=== PATIENT | female | born 1965 | race Caucasian/White ===

== ENCOUNTER 2018-12-14 12:59 | Outpatient (CLI) | payer BC | END 2018-12-14 13:00 | disposition home or self-care (01) | LOC: DTY/OP 12:59 | PROVIDERS: ATTEND Surgery | DX: E66.01 Morbid (severe) obesity due to excess calories (principal) | CPT/HCPCS: 97802 ==

== ENCOUNTER 2019-01-10 00:15 | Outpatient (CLI) | payer BC ==
--- NOTE | 2019-01-10 17:12 | RAD ---
F2 views chest: 01/10/2019 COMPARISON: None HISTORY: Preoperative patient FINDINGS: Lungs are clear. Heart and mediastinal contours are unremarkable. Right lateral osteophyte formation noted within the thoracic spine. IMPRESSION: No acute findings.
[2019-01-10 17:31] LABS: #Basophils 0.1 thou/uL (0.0-0.2); #Eosinphils 0.2 thou/uL (0.0-0.7); #Lymphocytes 4.3 thou/uL (1.20-3.40); #Monocytes 1.1 thou/uL (0.11-0.59); #Neutrophils 10.5 thou/uL (1.40-6.50); %Basophils 0.7 % (0.0-1.0); %Eosinophils 1.4 % (0.0-10.0); %Lymphocytes 26.5 % (21.0-51.0); %Monocytes 6.8 % (0.0-10.0); %Neutrophils 64.6 % (42.0-75.0); Hemoglobin 13.7 g/dL (12.0-16.0); Mean Corpuscular HGB CONC 33.2 g/dL (32.0-36.0); Mean Corpuscular Hemoglobin 29.4 pg (27.0-31.0); Mean Corpuscular Volume 88.6 fL (78.0-98.0); Mean Platelet Volume 9.2 fL (7.4-10.4); Platelet Count 352 thou/uL (130-400); RBC Distribution Width 12.8 % (11.5-14.5); Red Blood Cell (RBC) Count 4.67 mill/uL (4.20-5.40); White Blood Cell (WBC) Count 16.3 thou/uL (4.8-10.8)
[2019-01-10 17:47] LABS: ALT (SGPT) 31 U/L (8-55); AST (SGOT) 31 U/L (5-34); Albumin 4.1 g/dL (3.5-5.0); Alkaline Phosphatase 80 U/L (40-150); Anion Gap 12 mmol/L (10-20); BUN (Urea Nitrogen) 28 mg/dL (9.8-20.1); Bilirubin, Direct 0.3 mg/dL (0.1-0.3); Bilirubin, Total 0.7 mg/dL (0.2-1.2); Calc. Creatinine Clearance 0 mL/min (70-130); Calcium 9.9 mg/dL (7.8-10.44); Carbon Dioxide 30 mmol/L (22-29); Chloride 96 mmol/L (98-107); Estimated GFR-MDRD 76; Glucose 120 mg/dL (70-105); Hemoglobin A1c 7.9 % (4.0-6.0); Potassium 3.6 mmol/L (3.5-5.1); Protein, Total 7.1 g/dL (6.0-8.3); Sodium 134 mmol/L (136-145)
== END 2019-01-10 00:16 | disposition home or self-care (01) ==
LOC: LABBT 00:15
PROVIDERS: ATTEND Surgery
DX: Z01.818 Encounter for other preprocedural examination (principal); E66.01 Morbid (severe) obesity due to excess calories
CPT/HCPCS: 71046; 80053; 80076; 83036; 85025

== ENCOUNTER 2019-01-10 15:30 | Inpatient (IN) | payer BC ==
[2019-01-10 16:20] VITALS: BMI 42.9
[2019-01-16] MEDS ORDERED: Fentanyl 100 MCG/2 ML VIAL ONE ×2 (06:24→09:23)
[2019-01-16] MEDS ORDERED: Bupivacaine/Epinephrine 0.25% 30 ML VIAL ONE (06:39)
[2019-01-16] MEDS ORDERED: Heparin 5,000 UNITS/ML VIAL ONE (06:51)
[2019-01-16] MEDS ORDERED: SUGAMMADEX SODIUM 200 MG/2 ML VIAL ONE (08:36)
[2019-01-16] MEDS ORDERED: Hydrocodone-Acetamin 15 ML UDCUP PO PRN (08:44)
[2019-01-16] MEDS ORDERED: Dextrose 5% in Water 1,000 ML IV PRN (08:44)
[2019-01-16] MEDS ORDERED: Promethazine HCl 25 MG/ML VIAL IM PRN ×3 (08:44→09:11)
[2019-01-16] MEDS ORDERED: hydrALAZINE 20 MG/ML VIAL SLOW IVP PRN (08:44)
[2019-01-16] MEDS ORDERED: Ondansetron PF 4 MG/2 ML Vial IVP PRN (08:44)
[2019-01-16] MEDS ORDERED: diphenhydrAMINE 50 MG/ML VIAL IVP PRN ×2 (08:44→09:11)
[2019-01-16] MEDS ORDERED: Dextrose 50% Abboject 50 ML SYRINGE SLOW IVP PRN (08:44)
[2019-01-16] MEDS ORDERED: Meperidine HCl/PF 25 MG/ML VIAL SLOW IVP PRN (08:56)
[2019-01-16] MEDS ORDERED: Promethazine HCl 25 MG/ML VIAL ONE ×2 (08:56→10:37)
[2019-01-16] MEDS ORDERED: Promethazine HCl 25 MG/ML VIAL SLOW IVP PRN (08:56)
[2019-01-16] MEDS ORDERED: Ketorolac Tromethamine 30 MG/ML VIAL IVP PRN ×2 (08:56→09:11)
[2019-01-16] MEDS ORDERED: HYDROmorphone 2 MG/ML VIAL SLOW IVP PRN (08:56)
[2019-01-16] MEDS ORDERED: Morphine Sulfate 2 MG/ML SYRINGE SLOW IVP PRN (08:56)
[2019-01-16] MEDS ORDERED: Ondansetron HCl/PF 4 MG/2 ML Vial IVP PRN (08:56)
[2019-01-16] MEDS ORDERED: fentaNYL Citrate/PF 2,000 MCG in Sodium Chloride 0.9% 60 ML IV PRN (09:11)
[2019-01-16] MEDS ORDERED: Zolpidem Tartrate 5 MG TAB PO PRN (09:11)
[2019-01-16] MEDS ORDERED: Naloxone HCl 0.4 mg/ml Vial IV PRN (09:11)
[2019-01-16] MEDS ORDERED: diphenhydrAMINE 50 MG/ML VIAL IM PRN (09:11)
[2019-01-16] MEDS ORDERED: diphenhydrAMINE 25 MG CAP PO PRN (09:11)
[2019-01-16] MEDS ORDERED: Communication Order-Pharmacy FS SCH (09:15)
[2019-01-16] MEDS ORDERED: hydrALAZINE 20 MG/ML VIAL ONE (09:16)
[2019-01-16] MEDS ORDERED: Ondansetron PF 4 MG/2 ML Vial ONE (09:36)
[2019-01-16] MEDS: Pantoprazole 40 MG VIAL IVP SCH (11:08)
[2019-01-16] MEDS ORDERED: Ketorolac Tromethamine 30 MG/ML VIAL IVP SCH (12:00)
[2019-01-16] MEDS: 1/2 NS w/KCL 20 mEq 1,000 ML IV SCH ×3 (12:21→21:10)
--- NOTE | 2019-01-16 12:41 | OP ---
DATE OF PROCEDURE: 01/16/2019 PREOPERATIVE DIAGNOSIS: Morbid obesity. PROCEDURES PERFORMED: Laparoscopic sleeve gastrectomy and esophagogastroscopy. INDICATIONS: This is a 53-year-old female, morbidly obese, who has multiple comorbidities, who has attempted multiple weight loss programs without success. FINDINGS: A 38-Green[place]ic bougie used. DESCRIPTION OF PROCEDURE: After informed consent was obtained, the patient was taken to the operating room and given general endotracheal anesthesia. She was placed in the supine position. Her abdomen was prepped and draped in the usual fashion. Local anesthesia was infiltrated subcutaneously and deep. A 12-mm incision was performed approximately 8 inches above the xiphoid slightly to the left. Veress needle was inserted. Drop test performed. Pneumoperitoneum was created to a volume of 2 L of carbon dioxide. Utilizing a bladeless 12 mm trocar and 0-degree laparoscope, direct visual entry in the abdominal cavity was performed. Pneumoperitoneum was created to a pressure of 15 mmHg. The patient was placed in steep reverse Trendelenburg position. Que liver retractor was inserted. Left lobe of the liver retracted superiorly. Pylorus was identified, and 12-mm port was placed on the right beneath it and two 12s placed on left subcostal. The omentum was taken off the greater curvature 5 cm from the pylorus utilizing the LigaSure. Short gastrics divided with LigaSure. Left crura defined with the LigaSure. A 38-Green[place]ic bougie inserted, directed into the antrum. The linear 60 mm green load stapler was used to divide the antrum to the bougie, gold load along the bougie, and a series of blues through the angle of His. Intraoperative endoscopy was performed. The video endoscope was inserted under direct vision, advanced into the sleeve. The staple line was inspected. There was no bleeding. Staple line was then tested by inflating the new stomach with pressurized air under water. There was no air leak. Stomach was decompressed. Scope was removed. The remnants of the stomach removed from the abdomen through the left lateral port site. The fascia was closed with 0 Vicryl suture and the GraNee needle. Trocars and retractors were removed. Skin was closed with interrupted 4-0 Rapide. Dermabond applied. The patient tolerated the procedure well, transferred to Recovery in good condition. Sponge and needle count verified correct x2. Job ID: [id number]
[2019-01-16] MEDS ORDERED: diphenhydrAMINE 50 MG/ML VIAL ONE (14:46)
[2019-01-16] MEDS ORDERED: PROPOFOL 200 MG/20 ML VIAL ONE (14:46)
[2019-01-16] MEDS ORDERED: PHENYLEPHRINE-NS 100 MCG/ML 10 ML SYRINGE ONE (14:46)
[2019-01-16] MEDS ORDERED: Dexamethasone 20 MG/5 ML VIAL ONE (14:46)
[2019-01-16] MEDS ORDERED: Lidocaine 1% PF 5 ML VIAL ONE (14:46)
[2019-01-16] MEDS ORDERED: Rocuronium Bromide 10 MG/ML (10ML VIAL) ONE (14:46)
[2019-01-16] MEDS: CEFAZOLIN 2 GM in Premix Bag 1 BAG IVPB SCH ×2 (14:55→23:57)
[2019-01-16] MEDS: Insulin Regular 300 UNITS/3 ML VIAL SC PRN ×2 (18:15→23:58)
[2019-01-16] MEDS ORDERED: Enoxaparin Sodium 40 MG/0.4 ML SYRINGE SC SCH (21:00)
[2019-01-17] MEDS: Ondansetron PF 4 MG/2 ML Vial IVP PRN ×2 (03:48→09:29)
[2019-01-17] MEDS: Insulin Regular 300 UNITS/3 ML VIAL SC PRN ×2 (06:00→11:41)
[2019-01-17 06:02] LABS: Anion Gap 15 mmol/L (10-20); BUN (Urea Nitrogen) 22 mg/dL (9.8-20.1); Calc. Creatinine Clearance 141 mL/min (70-130); Calcium 8.6 mg/dL (7.8-10.44); Carbon Dioxide 25 mmol/L (22-29); Chloride 98 mmol/L (98-107); Estimated GFR-MDRD 67; Glucose 218 mg/dL (70-105); Potassium 4.4 mmol/L (3.5-5.1); Sodium 134 mmol/L (136-145)
[2019-01-17 06:03] LABS: Band 7 % (5-11); Hemoglobin 10.8 g/dL (12.0-16.0); Lymphocytes 8 % (21-51); MDiff Complete? YES; Mean Corpuscular HGB CONC 33.1 g/dL (32.0-36.0); Mean Corpuscular Hemoglobin 29.5 pg (27.0-31.0); Mean Corpuscular Volume 89.1 fL (78.0-98.0); Mean Platelet Volume 9.7 fL (7.4-10.4); Metamyelocyte 1 % (0-0); Monocytes 7 % (0-10); Neutrophil 77 % (42-75); Platelet Count 409 thou/uL (130-400); Platelet Morphology Comment Appears Increased; RBC Distribution Width 13.2 % (11.5-14.5); Red Blood Cell (RBC) Count 3.67 mill/uL (4.20-5.40); White Blood Cell (WBC) Count 24.1 thou/uL (4.8-10.8)
[2019-01-17] MEDS: 1/2 NS w/KCL 20 mEq 1,000 ML IV SCH (06:03)
--- NOTE | 2019-01-17 08:35 | RAD ---
XR UGI Single Contrast No Air History: [Recent gastric sleeve. Postoperative. Evaluate for leak.] Comparison: None Findings: Patient was given 15 mL of Gastrografin water-soluble contrast. Contrast transited through the esophagus quickly. There is transit through the postoperative stomach into the proximal small bow el. No leak. Impression: No leak. Normal examination.
[2019-01-17] MEDS: Pantoprazole 40 MG VIAL IVP SCH (09:29)
[2019-01-17] MEDS ORDERED: Hydrocodone-Acetamin 15 ML UDCUP PO PRN (09:43)
--- NOTE | 2019-01-17 09:58 | PRG ---
DATE OF SERVICE: 01/17/2019 SUBJECTIVE: The patient's been having a lot of nausea. She has tried multiple medications, Zofran seems to be the best. No vomiting. OBJECTIVE: VITAL SIGNS: Her temperature is 97.9, pulse is 110, blood pressure 136/80. GENERAL: She looks okay. LUNGS: Clear. ABDOMEN: Soft, nondistended. The incisions are healing well. DIAGNOSTIC DATA: She had an upper GI series that was normal. No evidence of leak. No evidence of obstruction. LABORATORY DATA: White count is 24, H and H 10 and 32, platelet count 409. Electrolytes show elevated glucose at 218. ASSESSMENT: Postop nausea. PLAN: We will try different medications to get this under control. When she is able to drink enough fluids and feeling better, not tachycardic, we will consider discharge. Job ID: [id number]
[2019-01-17 15:53] VITALS: BP 111/73; TEMP 98.5
[2019-01-17] MEDS ORDERED: Sodium Chloride 0.9% 1,000 ML IV SCH (17:00)
--- NOTE | 2019-01-18 04:51 | DIS ---
DATE OF ADMISSION: 01/16/2019 DATE OF DISCHARGE: 01/17/2019 DISCHARGE DIAGNOSIS: Morbid obesity. PROCEDURES DURING ADMISSION: Laparoscopic sleeve gastrectomy, intraoperative esophagogastroscopy, and postoperative Gastrografin swallow. HOSPITAL COURSE: Patient was admitted, taken to the operating room where she underwent sleeve gastrectomy. Postoperatively, she had a lot of nausea that was eventually controlled. Her swallow was fine. She was started on liquids. She was a little bit tachycardic, but that is resolving. She wants to go home, tolerating liquids well. Pain is controlled on p.o. medications. She is discharged home on hydrocodone and Zofran. She will follow up with me in 2 weeks. Job ID: [id number]
== END 2019-01-17 18:17 | disposition home or self-care (01) | DRG 621 ==
LOC: EDSTATUS 15:30 → SURG A 01-16 05:56
PROVIDERS: ADMIT Surgery; ATTEND Surgery
PROC: 0DB64Z3 Excision of Stomach, Percutaneous Endoscopic Approach, Vertical (ICD-10-PCS; principal; 2019-01-16)
PROC: 0DJ68ZZ Inspection of Stomach, Via Natural or Artificial Opening Endoscopic (ICD-10-PCS; 2019-01-16)
DX: E66.01 Morbid (severe) obesity due to excess calories (principal); E78.5 Hyperlipidemia, unspecified; E11.9 Type 2 diabetes mellitus without complications; I10 Essential (primary) hypertension; Z68.41 Body mass index [BMI] 40.0-44.9, adult; Z88.5 Allergy status to narcotic agent; Z90.710 Acquired absence of both cervix and uterus; Z90.49 Acquired absence of other specified parts of digestive tract
CPT/HCPCS: 36415; 36416; 74241; 80048; 85025; 88307; 88312; 94760; C9113; J0360; J1100; J1200; J1644; J1650; J1815; J1885; J2001; J2405; J2550; J2704; J3010; J3480; J7050; J7620